=== PATIENT | female | born 1980 | race Caucasian/White ===

== ENCOUNTER 2019-10-02 18:29 | Observation (INO) ==
[2019-10-02] MEDS ORDERED: LORazepam 2 MG/1 ML VIAL IV STA (18:54)
[2019-10-02] MEDS ORDERED: SODIUM CHLORIDE 0.9% 1,000 ML IV STA (18:54)
[2019-10-02 20:28] LABS: Basophils % 0.3 % (0.0-0.8); Eosinophils % 0.1 % (0.00-10.9); Hematocrit 31.9 VOL% (35.7-47.0); Hemoglobin 10.1 GM/DL (12.0-16.0); Immature Granulocytes % 0.4 %; Immature Granulocytes Absolute 0.04 #; Lymphocytes # 0.7 10*3/uL (1.4-4.0); Lymphocytes % 7.3 % (21.3-54.2); Mean Corpuscular HGB Conc 31.7 GM/DL (32-36); Mean Corpuscular Volume 82.4 FL (87-102); Mean Platelet Volume 10.6 FL (9.6-12.0); Monocytes % 6.6 % (1.7-12.7); Neutrophils % 85.3 % (38.7-73.9); Platelet Count 223 T/CUMM (130-400); Red Blood Count 3.87 MC/CUMM (3.8-5.5); Red Cell Distribution Width 18.1 % (9.3-17.3); White Blood Count 10.1 T/CUMM (4-12)
[2019-10-02 20:54] LABS: Ferritin 5.9 ng/ml (8-252)
[2019-10-02 20:55] LABS: Acetaminophen < 2.0 UG/ML (10-30); Salicylate < 2.8 MG/DL (2.8-20)
[2019-10-02 20:56] LABS: Alanine Aminotransferase 10 U/L (13-56); Alkaline Phosphatase 61 U/L (45-117); Aspartate Amino Transferase 25 U/L (0-37); Blood Urea Nitrogen 13 MG/DL (7-18); Calcium 8.8 MG/DL (8.5-10.1); Estimated Glom Filtration Rate 75 ML/MIN; Glucose 106 MG/DL (74-106); Total Protein 7.7 G/DL (6.4-8.3); Troponin I < 0.015 NG/ML (0.00-0.045)
[2019-10-02 23:09] LABS: Barbiturates Screen,Urine Negative (Negative); Benzodiazepines Screen,Urine Negative (Negative); Cannabinoid Screen,Urine Negative (Negative); Opiate Screen,Urine Negative (Negative); Phencyclidine Screen,Urine Negative (Negative)
[2019-10-02 23:30] LABS: Apearance,Urine CLEAR (Clear); Bilirubin,Urine Negative (Negative); Blood, Urine Moderate mg/dL (Negative); Glucose,Urine (UA) Negative (Negative); Hyaline Casts,Urine 4 /LPF (0-3); Ketones,Urine 20 mg/dL (Negative); Mucus,Urine Few /LPF (Occasional); Nitrite,Urine Negative (Negative); Protein,Urine 30 MG/DL; RBC,Urine 1 /HPF (0-4); Squamous Epithelial Cell,Urine Occasional /HPF (0-10); Urine Color Amber (Yellow); Urine Specific Gravity 1.028 (1.001-1.035); Urine Urobilinogen < 2.0 EU/DL (0.2-1.0); WBC,Urine 8 /HPF (0-6)
[2019-10-03] MEDS ORDERED: ACETAMINOPHEN 325 MG TABLET PO PRN (00:25)
[2019-10-03] MEDS ORDERED: DEXTROSE 10% 250 ML BAG IV PRN (00:25)
[2019-10-03] MEDS ORDERED: GLUCAGON 1 MG VIAL IM PRN (00:25)
[2019-10-03] MEDS ORDERED: ONDANSETRON 4 MG/2 ML VIAL IV PRN (00:25)
[2019-10-03] MEDS: SODIUM CHLORIDE 0.9% 1,000 ML IV SCH ×2 (00:30→11:06)
[2019-10-03] MEDS ORDERED: LORazepam 2 MG/1 ML VIAL IV PRN (00:32)
[2019-10-03] MEDS: PANTOPRAZOLE 40 MG TABLET PO SCH (08:22)
[2019-10-03] MEDS: ENOXAPARIN 40 MG/0.4 ML SYRINGE SUBCUT SCH (08:22)
[2019-10-03 08:34] LABS: Alanine Aminotransferase 9 U/L (13-56); Alkaline Phosphatase 48 U/L (45-117); Aspartate Amino Transferase 8 U/L (0-37); Bilirubin,Total < 0.39 MG/DL (0.2-1.0); Blood Urea Nitrogen 11 MG/DL (7-18); Calcium 8.4 MG/DL (8.5-10.1); Estimated Glom Filtration Rate 88 ML/MIN; Glucose 85 MG/DL (74-106); Osmolality,Calculated 280.1 MOS/KG (273-304)
[2019-10-03] MEDS ORDERED: SUMAtriptan 6 MG/0.5 ML VIAL SUBCUT PRN (22:41)
[2019-10-03] MEDS: DIVALPROEX 500 MG TABLET PO SCH (23:23)
[2019-10-04] MEDS ORDERED: PROMETHAZINE 25 MG/1 ML VIAL IM PRN (09:09)
[2019-10-04] MEDS: ENOXAPARIN 40 MG/0.4 ML SYRINGE SUBCUT SCH (09:24)
[2019-10-04] MEDS: DIVALPROEX 500 MG TABLET PO SCH (09:24)
[2019-10-04] MEDS: PANTOPRAZOLE 40 MG TABLET PO SCH (09:24)
[2019-10-04] MEDS: SODIUM CHLORIDE 0.9% 1,000 ML IV SCH (09:28)
[2019-10-04 11:54] VITALS: BP 108/62
== END 2019-10-04 12:20 | disposition home or self-care (01) ==
LOC: EDBD → EDUNIT# → N.ED 18:29 → N.EDINP 18:29 → SUPCPDRO 10-03 00:25 → N.3E 10-03 04:00
PROVIDERS: ADMIT Family Medicine; ATTEND Family Medicine